=== PATIENT | male | born 1945 | race Caucasian/White ===

== ENCOUNTER → 2019-11-18 09:26 | Outpatient (BNVA) | payer BC, SELFPAY | PROVIDERS: Family Provider Family Medicine; PCP Family Medicine; Visit Provider Otolaryngology | DX: H93.19 Tinnitus, unspecified ear (principal); H90.5 Unspecified sensorineural hearing loss; J34.2 Deviated nasal septum | CPT/HCPCS: 99214 ==

== ENCOUNTER → 2020-02-21 12:07 | Outpatient (BNVA) | payer MEDICARE, SELFPAY | PROVIDERS: Family Provider Family Medicine; PCP Nurse Practitioner Family; Visit Provider Nurse Practitioner Family | DX: N40.1 Benign prostatic hyperplasia with lower urinary tract symptoms (principal); E11.9 Type 2 diabetes mellitus without complications; N52.9 Male erectile dysfunction, unspecified; Z80.42 Family history of malignant neoplasm of prostate; M35.3 Polymyalgia rheumatica; Z76.89 Persons encountering health services in other specified circumstances | CPT/HCPCS: 83036; 84153 ==

== ENCOUNTER → 2020-02-22 08:22 | Outpatient (BNVA) | payer MEDICARE, SELFPAY | PROVIDERS: Family Provider Family Medicine; PCP Nurse Practitioner Family; Visit Provider Nurse Practitioner Family | DX: N40.0 Benign prostatic hyperplasia without lower urinary tract symptoms (principal); N40.1 Benign prostatic hyperplasia with lower urinary tract symptoms; E11.9 Type 2 diabetes mellitus without complications; M35.3 Polymyalgia rheumatica; Z76.89 Persons encountering health services in other specified circumstances; N52.9 Male erectile dysfunction, unspecified; Z80.42 Family history of malignant neoplasm of prostate | CPT/HCPCS: 84154 ==

== ENCOUNTER 2020-03-12 10:31 | Outpatient (CLI) | payer MEDICARE, SELFPAY ==
--- NOTE | 2020-03-12 10:58 | XR_ITS ---
WS: [id number] RIBS RIGHT TECHNIQUE: 3 views of the right ribs CLINICAL INFORMATION: fall COMPARISON: None. FINDINGS: Right ribs are normal in appearance. No visualized fractures. Right lung is well aerated. 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 Cholecystectomy clips. Postoperative changes lower cervical spine. XR/XR ribs RT 2V* [id number] IMPRESSION: No visualized rib fractures.
== END 2020-03-12 10:32 | disposition home or self-care (01) ==
LOC: RADWPI 10:36
PROVIDERS: Family Provider Family Medicine; PCP Nurse Practitioner Family; Visit Provider Nurse Practitioner Family
DX: S20.211A Contusion of right front wall of thorax, initial encounter (principal); W19.XXXA Unspecified fall, initial encounter
CPT/HCPCS: 71100

== ENCOUNTER → 2020-04-04 09:36 | Outpatient (BNVA) | payer MEDICARE, SELFPAY | PROVIDERS: Family Provider Family Medicine; PCP Nurse Practitioner Family; Visit Provider Urology | DX: R97.20 Elevated prostate specific antigen [PSA] (principal); N40.1 Benign prostatic hyperplasia with lower urinary tract symptoms; N39.9 Disorder of urinary system, unspecified | CPT/HCPCS: 81001; 84153 ==

== ENCOUNTER → 2020-05-15 08:57 | Outpatient (BNVA) | payer MEDICARE, SELFPAY | PROVIDERS: Family Provider Family Medicine; PCP Nurse Practitioner Family; Visit Provider Nurse Practitioner Family | DX: E11.9 Type 2 diabetes mellitus without complications (principal) | CPT/HCPCS: 83036 ==

== ENCOUNTER → 2020-07-16 09:00 | Outpatient (BNVA) | payer MEDICARE, SELFPAY | PROVIDERS: Family Provider Family Medicine; PCP Nurse Practitioner Family; Visit Provider Nurse Practitioner Family | DX: M79.2 Neuralgia and neuritis, unspecified (principal); M35.3 Polymyalgia rheumatica; G25.81 Restless legs syndrome; G47.61 Periodic limb movement disorder; H93.13 Tinnitus, bilateral; E11.00 Type 2 diabetes mellitus with hyperosmolarity without nonketotic hyperglycemic-hyperosmolar coma (NKHHC) | CPT/HCPCS: 82728; 83550; 85651 ==

== ENCOUNTER → 2020-08-15 11:29 | Outpatient (BNVA) | payer MEDICARE, SELFPAY | PROVIDERS: Family Provider Family Medicine; PCP Nurse Practitioner Family; Visit Provider Nurse Practitioner Family | DX: I10 Essential (primary) hypertension (principal); Z68.30 Body mass index [BMI] 30.0-30.9, adult; R41.3 Other amnesia; E11.9 Type 2 diabetes mellitus without complications; R41.82 Altered mental status, unspecified | CPT/HCPCS: 80053; 80061; 82306; 82607; 83036; 84439; 84443 ==

== ENCOUNTER → 2020-11-28 08:17 | Outpatient (BNVA) | payer MEDICARE, SELFPAY | PROVIDERS: Family Provider Family Medicine; PCP Nurse Practitioner Family; Visit Provider Urology | DX: N41.1 Chronic prostatitis (principal); N40.1 Benign prostatic hyperplasia with lower urinary tract symptoms; R35.0 Frequency of micturition; N39.41 Urge incontinence; R97.20 Elevated prostate specific antigen [PSA] | CPT/HCPCS: 81003 ==

== ENCOUNTER 2021-02-27 06:00 | Outpatient (RCR) | payer MEDICARE, SELFPAY | END 2021-03-04 23:59 | disposition home or self-care (01) | LOC: GPT 06:00 | PROVIDERS: PCP Family Medicine; Referring Provider Orthopaedic Surgery; Visit Provider Orthopaedic Surgery | DX: S93.491D Sprain of other ligament of right ankle, subsequent encounter (principal); X58.XXXD Exposure to other specified factors, subsequent encounter | CPT/HCPCS: 97032; 97110; 97163; 97530 ==

== ENCOUNTER → 2021-04-17 15:43 | Outpatient (BNVA) | payer MEDICARE, SELFPAY | PROVIDERS: PCP Family Medicine; Visit Provider Urology | DX: N40.1 Benign prostatic hyperplasia with lower urinary tract symptoms (principal); R35.0 Frequency of micturition; N41.1 Chronic prostatitis; Z80.42 Family history of malignant neoplasm of prostate | CPT/HCPCS: 81003 ==

== ENCOUNTER → 2021-07-23 08:12 | Outpatient (BNVA) | payer MEDICARE, SELFPAY | PROVIDERS: PCP Family Medicine; Visit Provider Urology | DX: N40.1 Benign prostatic hyperplasia with lower urinary tract symptoms (principal) | CPT/HCPCS: 81003 ==

== ENCOUNTER → 2023-08-24 13:24 | Outpatient (BNVA) | payer MEDICARE, SELFPAY | PROVIDERS: PCP Family Medicine; Visit Provider Nurse Practitioner | DX: J44.1 Chronic obstructive pulmonary disease with (acute) exacerbation (principal) | CPT/HCPCS: 71046 ==

== ENCOUNTER 2024-03-07 06:00 | Outpatient (RCR) | payer MEDICARE, SELFPAY | END 2024-04-03 23:59 | disposition home or self-care (01) | LOC: GPT 06:00 | PROVIDERS: PCP Family Medicine; Visit Provider Nurse Practitioner | DX: M62.81 Muscle weakness (generalized) (principal); R26.81 Unsteadiness on feet | CPT/HCPCS: 97110; 97112; 97162 ==

== ENCOUNTER 2024-04-04 06:00 | Outpatient (RCR) | payer MEDICARE, SELFPAY | END 2024-05-04 23:59 | disposition home or self-care (01) | LOC: GPT 06:00 | PROVIDERS: PCP Family Medicine; Visit Provider Nurse Practitioner | DX: M62.81 Muscle weakness (generalized) (principal); R26.81 Unsteadiness on feet | CPT/HCPCS: 97110; 97112; 97164; 97530 ==

== ENCOUNTER 2024-05-05 06:00 | Outpatient (RCR) | payer MEDICARE, SELFPAY | END 2024-05-11 23:59 | disposition home or self-care (01) | LOC: GPT 06:00 | PROVIDERS: PCP Family Medicine; Visit Provider Nurse Practitioner | DX: M62.81 Muscle weakness (generalized) (principal); R26.81 Unsteadiness on feet | CPT/HCPCS: 97110; 97164 ==